=== PATIENT | male | born 1995 | race Caucasian/White ===

== ENCOUNTER 2018-08-30 22:55 | Emergency (ER) | payer MEDICAID ==
[2018-08-31] MEDS: AZITHROMYCIN 250 MG TAB PO (00:19)
[2018-08-31] MEDS: DOXYCYCLINE 100 MG TAB PO (00:19)
[2018-08-31] MEDS: CEFTRIAXONE 250 MG INJ IM (00:22)
== END 2018-08-31 01:36 | disposition home or self-care (01) ==
LOC: FTE 22:55
DX: A64 Unspecified sexually transmitted disease (principal); F17.210 Nicotine dependence, cigarettes, uncomplicated
CPT/HCPCS: 87591; 96372; 99284-25